=== PATIENT | female | born 1980 | race Caucasian/White ===

== ENCOUNTER 2018-11-14 02:45 | Emergency (ER) | payer BC ==
[2018-11-14] MEDS ORDERED: LORazepam 2 MG/ML VIAL ONE (03:42)
[2018-11-14] MEDS ORDERED: CARBAMAZEPINE 200 MG TAB ONE (03:43)
[2018-11-14] MEDS ORDERED: NA CHLORIDE 0.9% 1,000 ML ONE (03:43)
[2018-11-14 03:52] LABS: Protime INR 1.01
[2018-11-14 03:55] LABS: Absolute Lymphocytes (CBC) 1.1 K/uL (0.7-4.9); Absolute Monocytes 0.3 K/uL (0.1-1.3); Absolute Neutrophil 5.3 K/uL (1.8-8.0); Basophils % 0.7 % (0-1.3); Eosinophils % 0.8 % (0-4.4); Hematocrit 38.8 % (36.0-45.0); Lymphocytes % 15.6 % (15.3-44.8); MPV 8.6 fL (7.6-11.3); Monocytes % 4.9 % (3.3-12.3); RBC Red Blood Cell Count 4.13 M/uL (3.86-4.86)
[2018-11-14 04:01] LABS: Barbiturates NEGATIVE (NEGATIVE); Benzodiazepines NEGATIVE (NEGATIVE); Cocaine NEGATIVE (NEGATIVE); METHAMPHETAM NEGATIVE (NEGATIVE); Methadone NEGATIVE (NEGATIVE); Opiates NEGATIVE (NEGATIVE); Phencyclidine NEGATIVE (NEGATIVE); THC Cannibis NEGATIVE (NEGATIVE)
[2018-11-14 04:25] LABS: ALT/SGPT 19 U/L (12-78); Albumin 4.1 g/dL (3.4-5.0); Alkaline Phosphatase 63 U/L (45-117); BUN Blood Urea Nitrogen 8 mg/dL (7-18); Bicarbonate 26 mmol/L (21-32); Bilirubin Direct < 0.1 mg/dL (0-0.2); Bilirubin Total 0.3 mg/dL (0.2-1.0); Glucose Level 120 mg/dL (74-106); Lipase 121 U/L (73-393); Magnesium 2.1 mg/dL (1.8-2.4); NT PRO-BNP 65 pg/mL (<125); Protein, Total 7.3 g/dL (6.4-8.2); Sodium Level 138 mmol/L (136-145); Troponin I < 0.02 ng/mL (0.0-0.045)
[2018-11-14 04:26] LABS: AST/SGOT < 3 U/L (15-37)
[2018-11-14] MEDS ORDERED: CEFTRIAXONE/SWI 1gm 1 GM/10 ML SYR ONE (04:48)
--- NOTE | 2018-11-14 04:48 | EDPHYS ---
Physician Documentation [facility] Name: Valery Mueller Age: 38 yrs Sex: Female : 1980 Arrival Date: 11/14/2018 Time: 02:46 Bed 4 Private MD: ED Physician Xavier Irving HPI: 11/14 03:35 This 38 yrs old Female presents to ER via EMS with complaints of seizure and jaxon nausea. 03:35 The patient complains of pain to the forehead, left side of forehead, left temporal jaxon area, right temporal area and right side of forehead. The patient describes the headache as aching. Onset: The symptoms/episode began/occurred yesterday. Associated signs and symptoms: Pertinent positives: nausea. Severity of symptoms: At its worst the pain was mild. Headache History: The patient has had previous headaches and this one is similar to previous episodes. The patient has experienced similar episodes in the past, multiple times. 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 - Social history:: Smoking status: Patient/guardian denies using tobacco, Patient/guardian denies using alcohol, street drugs. - Ebola Screening: : Patient negative for fever greater than or equal to 101.5 degrees Fahrenheit, and additional compatible Ebola Virus Disease symptoms Patient denies exposure to infectious person Patient denies travel to an Ebola-affected area in the 21 days before illness onset. - Family history:: not pertinent, pertinent for. ROS: 03:35 Constitutional: Negative for fever, chills, and weight loss, Eyes: Negative for injury, jaxon pain, redness, and discharge, ENT: Negative for injury, pain, and discharge, Neck: Negative for injury, pain, and swelling, Cardiovascular: Negative for chest pain, palpitations, and edema, Respiratory: Negative for shortness of breath, cough, wheezing, and pleuritic chest pain, Abdomen/GI: Negative for abdominal pain, nausea, vomiting, diarrhea, and constipation, Back: Negative for injury and pain, : Negative for injury, bleeding, discharge, and swelling, MS/Extremity: Negative for injury and deformity, Neuro: Negative for headache, weakness, numbness, tingling, and seizure, Psych: Negative for depression, anxiety, suicide ideation, homicidal ideation, and hallucinations, Allergy/Immunology: Negative for hives, rash, and allergies, Endocrine: Negative for neck swelling, polydipsia, polyuria, polyphagia, and marked weight changes, Hematologic/Lymphatic: Negative for swollen nodes, abnormal bleeding, and unusual bruising. 03:35 Neuro: Positive for seizure activity, weakness. Exam: 03:35 Constitutional: This is a well developed, well nourished patient who is awake, alert, jaxon and in no acute distress. Head/Face: Normocephalic, atraumatic. Eyes: Pupils equal round and reactive to light, extra-ocular motions intact. Lids and lashes normal. Conjunctiva and sclera are non-icteric and not injected. Cornea within normal limits. Periorbital areas with no swelling, redness, or edema. ENT: Nares patent. No nasal discharge, no septal abnormalities noted. Tympanic membranes are normal and external auditory canals are clear. Oropharynx with no redness, swelling, or masses, exudates, or evidence of obstruction, uvula midline. Mucous membranes moist. Neck: Trachea midline, no thyromegaly or masses palpated, and no cervical lymphadenopathy. Supple, full range of motion without nuchal rigidity, or vertebral point tenderness. No Meningismus. Chest/axilla: Normal chest wall appearance and motion. Nontender with no deformity. No lesions are appreciated. Cardiovascular: Regular rate and rhythm with a normal S1 and S2. No gallops, murmurs, or rubs. Normal PMI, no JVD. No pulse deficits. Respiratory: Lungs have equal breath sounds bilaterally, clear to auscultation and percussion. No rales, rhonchi or wheezes noted. No increased work of breathing, no retractions or nasal flaring. Abdomen/GI: Soft, non-tender, with normal bowel sounds. No distension or tympany. No guarding or rebound. No evidence of tenderness throughout. Back: No spinal tenderness. No costovertebral tenderness. Full range of motion. Skin: Warm, dry with normal turgor. Normal color with no rashes, no lesions, and no evidence of cellulitis. MS/ Extremity: Pulses equal, no cyanosis. Neurovascular intact. Full, normal range of motion. Psych: Awake, alert, with orientation to person, place and time. Behavior, mood, and affect are within normal limits. 03:35 Neuro: Orientation: is normal, appropriate for stated age, no acute changes, Mentation: is normal, appropriate for stated age, no acute changes, Memory: is normal, appropriate for stated age, no acute changes, Cranial nerves: grossly normal, is grossly normal based on the patient's age, no acute changes. Vital Signs: 02:42 BP 131 / 84; Pulse 66; Resp 18; Temp 98.3(O); Pulse Ox 100% on R/A; Weight 72.57 kg fc (R); Height 5 ft. 2 in. (157.48 cm) (R); Pain 6/10; 03:55 BP 124 / 79; Pulse 51; Resp 16; Pulse Ox 100% on R/A; Pain 6/10; ed1 04:20 BP 125 / 73; Pulse 58; Resp 15; Pulse Ox 100% ; ea 02:42 Body Mass Index 29.26 (72.57 kg, 157.48 cm) MDM: 02:54 Patient medically screened. [facility] 03:38 Data reviewed: vital signs, nurses notes, lab test result(s), EKG, radiologic studies. [facility] 11/14 03:27 Order name: Urine Dipstick--Ancillary (enter results) [facility] 11/14 03:27 Order name: Urine --Ancillary (enter results) [facility] 11/14 03:35 Order name: Urine Drug Screen; Complete Time: 04:13 [facility] 11/14 03:35 Order name: Urine Culture [facility] 11/14 02:56 Order name: XRAY Chest (1 view) [facility] 11/14 03:14 Order name: Chest Single View [facility] 11/14 03:40 Order name: Basic Metabolic Panel; Complete Time: 04:46 [facility] 11/14 03:40 Order name: Liver (Hepatic) Function; Complete Time: 04:46 [facility] 11/14 03:40 Order name: Troponin I; Complete Time: 04:46 [facility] 11/14 03:40 Order name: NT PRO-BNP; Complete Time: 04:46 [facility] 11/14 03:40 Order name: Magnesium; Complete Time: 04:46 [facility] 11/14 03:40 Order name: Lipase; Complete Time: 04:46 [facility] 11/14 03:41 Order name: CBC with Automated Diff; Complete Time: 03:58 [facility] 11/14 03:41 Order name: Protime (+INR); Complete Time: 03:58 [facility] 11/14 03:59 Order name: Head Brain Wo Cont [facility] 11/14 04:01 Order name: Carbamazepine (Tegretol) Level; Complete Time: 04:46 [facility] 11/14 02:56 Order name: EKG; Complete Time: 07:16 [facility] 11/14 02:56 Order name: Cardiac monitoring; Complete Time: 03:23 [facility] 11/14 02:56 Order name: EKG - Nurse/Tech; Complete Time: 03:23 [facility] 11/14 02:56 Order name: IV Saline Lock; Complete Time: 03:23 [facility] 11/14 02:56 Order name: Labs collected and sent; Complete Time: 03:23 [facility] 11/14 02:56 Order name: O2 Per Protocol; Complete Time: 03:23 [facility] 11/14 02:56 Order name: O2 Sat Monitoring; Complete Time: 03:23 [facility] 11/14 02:56 Order name: Urine Dipstick-Ancillary (obtain specimen); Complete Time: 03:23 [facility] 11/14 02:56 Order name: Urine Test (obtain specimen); Complete Time: 03:22 [facility] 11/14 02:56 Order name: Seizure Precautions; Complete Time: 02:57 [facility] Administered Medications: 03:45 Drug: TEGretol 400 mg Route: PO; ed1 05:03 Follow up: Response: No adverse reaction ed1 03:46 Drug: NS 0.9% 1000 ml Route: IV; Rate: 125 ml/hr; Site: right antecubital; ed1 05:02 Follow up: IV Status: Order to discontinue infusion; IV Intake: 125ml ed1 03:46 Drug: Ativan 1 mg Route: IVP; Site: right antecubital; ed1 05:03 Follow up: Response: No adverse reaction ed1 04:49 Drug: Rocephin - (cefTRIAXone) 1 grams Route: IVPB; Infused Over: 30 mins; Site: right ed1 antecubital; 05:02 Follow up: Response: No adverse reaction; IV Status: Completed infusion ed1 Disposition: 11/14/18 04:47 Discharged to Home. Impression: Epilepsy and recurrent seizures, Cystitis. - Condition is Fair. - Discharge Instructions: Dysuria, Seizure, Adult, Seizure, Adult, [id number]. - Prescriptions for Tegretol 200 mg Oral Tablet - take 1 tablet by ORAL route every 12 hours; 40 tablet. Cipro 500 mg Oral Tablet - take 1 tablet by ORAL route every 12 hours for 7 days; 14 tablet. - Medication Reconciliation Form, Thank You Letter, Antibiotic Education, Prescription Opioid Use form. - Follow up: Private Physician; When: 2 - 3 days; Reason: Recheck today's complaints, Continuance of care, Re-evaluation by your physician. Follow up: Mohinder Waller; When: 2 - 3 days; Reason: Recheck today's complaints, Continuance of care, Re-evaluation by your physician. - Problem is new. - Symptoms have improved. Signatures: Dispatcher [employer] EDMS Xavier Irving MD MD cha Chretien, Felicia, RN RN Poppy Barry RN RN ed1 Corrections: (The following items were deleted from the chart) 05:04 04:47 11/14/2018 04:47 Discharged to Home. Impression: Epilepsy and recurrent seizures; ed1 Cystitis. Condition is Fair. Discharge Instructions: Dysuria, Seizure, Adult, Seizure, Adult, [id number]. Prescriptions for Tegretol 200 mg Oral Tablet - take 1 tablet by ORAL route every 12 hours; 40 tablet, Cipro 500 mg Oral Tablet - take 1 tablet by ORAL route every 12 hours for 7 days; 14 tablet. and Forms are Medication Reconciliation Form, Thank You Letter, Antibiotic Education, Prescription Opioid Use. Follow up: Private Physician; When: 2 - 3 days; Reason: Recheck today's complaints, Continuance of care, Re-evaluation by your physician. Follow up: Mohinder Waller; When: 2 - 3 days; Reason: Recheck today's complaints, Continuance of care, Re-evaluation by your physician. Problem is new. Symptoms have improved. jaxon
--- NOTE | 2018-11-14 04:48 | ER ---
Nurse's Notes [facility] Name: Valery Mueller Age: 38 yrs Sex: Female : 1980 Arrival Date: 11/14/2018 Time: 02:46 Bed 4 Private MD: Diagnosis: Epilepsy and recurrent seizures;Cystitis Presentation: 11/14 02:42 Presenting complaint: EMS states: that pt had seizure earlier today while she was in her car. She was then arrested and taken to snf. There she felt as if her head was swelling, she was nauseated and felt like another seizure was going to happen so they called EMS. Has not taken her Tegretol in 2 weeks because she is out. Transition of care: patient was not received from another setting of care. Onset of symptoms was November 13, 2018. Risk Assessment: Do you want to hurt yourself or someone else? Patient reports no desire to harm self or others. Initial Sepsis Screen: Does the patient meet any 2 criteria? No. Patient's initial sepsis screen is negative. Does the patient have a suspected source of infection? No. Patient's initial sepsis screen is negative. Care prior to arrival: Glucose check: 100. 02:42 Method Of Arrival: EMS: 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 - Social history:: Smoking status: Patient/guardian denies using tobacco, Patient/guardian denies using alcohol, street drugs. - Ebola Screening: : Patient negative for fever greater than or equal to 101.5 degrees Fahrenheit, and additional compatible Ebola Virus Disease symptoms Patient denies exposure to infectious person Patient denies travel to an Ebola-affected area in the 21 days before illness onset. - Family history:: not pertinent, pertinent for. Screenin:42 Abuse screen: Denies threats or abuse. Nutritional screening: No deficits noted. fc Tuberculosis screening: No symptoms or risk factors identified. Fall Risk None identified. Assessment: 03:24 General: Appears in no apparent distress. Behavior is calm, cooperative. Pain: ed1 Complains of pain in head Pain does not radiate. Pain currently is 6 out of 10 on a pain scale. Quality of pain is described as aching, Pain began 1 day ago. Is continuous. Neuro: Level of Consciousness is awake, alert, obeys commands, Oriented to person, place, time, situation, Hose Inspector are equal bilaterally Moves all extremities. Full function Gait is steady, Speech is normal, Facial symmetry appears normal, Pupils are PERRLA, Intact Reports Pt reports seizure activity yesterday during the day. Cardiovascular: Denies chest pain, Heart tones S1 S2 present. Respiratory: Airway is patent Respiratory effort is even, unlabored, Respiratory pattern is regular, symmetrical, Breath sounds are clear bilaterally. GI: Abdomen is non-distended, Bowel sounds present X 4 quads. Abd is soft and non tender X 4 quads. Reports nausea, Patient currently denies diarrhea, vomiting. : No signs and/or symptoms were reported regarding the genitourinary system. EENT: No signs and/or symptoms were reported regarding the EENT system. Derm: Skin is intact, is healthy with good turgor, Skin is dry, Skin is normal, Skin temperature is warm. Musculoskeletal: Circulation, motion, and sensation intact. Range of motion: intact in all extremities. 03:55 Reassessment: Patient appears in no apparent distress at this time. No changes from ed1 previously documented assessment. Patient and/or family updated on plan of care and expected duration. Pain level reassessed. Patient is alert, oriented x 3, equal unlabored respirations, skin warm/dry/pink. No seizure activity noted Patient states symptoms have not improved. 05:00 Reassessment: Patient appears in no apparent distress at this time. Patient and/or ed1 family updated on plan of care and expected duration. Pain level reassessed. Patient is alert, oriented x 3, equal unlabored respirations, skin warm/dry/pink. No seizure activity noted Patient denies pain at this time. Patient states feeling better. Vital Signs: 02:42 BP 131 / 84; Pulse 66; Resp 18; Temp 98.3(O); Pulse Ox 100% on R/A; Weight 72.57 kg (R); Height 5 ft. 2 in. (157.48 cm) (R); Pain 6/10; 03:55 BP 124 / 79; Pulse 51; Resp 16; Pulse Ox 100% on R/A; Pain 6/10; ed1 04:20 BP 125 / 73; Pulse 58; Resp 15; Pulse Ox 100% ; ea 02:42 Body Mass Index 29.26 (72.57 kg, 157.48 cm) ED Course: 02:42 Arm band placed on Patient placed in an exam room, on a stretcher. 02:42 Patient has correct armband on for positive identification. Bed in low position. Call light in reach. Side rails up X2. Seizure precautions initiated. [place] police aide at bedside. residential monitor on. Pulse ox on. NIBP on. 02:42 No provider procedures requiring assistance completed. fc 02:46 Patient arrived in ED. al2 02:51 Triage completed. fc 02:54 Xavier Irving MD is Attending Physician. jaxon 03:12 Poppy Foster, RN is Primary Nurse. ed1 03:30 Chest Single View In Process Unspecified. EDMS 03:39 Inserted saline lock: 20 gauge in right antecubital area, using aseptic technique. lt1 03:39 Initial lab(s) drawn, by mt, sent to lab. lt1 04:17 CT completed. Patient tolerated procedure well. Patient moved to CT via stretcher. Patient moved back from CT. 04:43 Head Brain Wo Cont In Process Unspecified. EDMS 04:47 Mohinder Waller MD is Referral Physician. jaxon 05:00 IV discontinued, intact, bleeding controlled, No redness/swelling at site. Pressure ed1 dressing applied. Administered Medications: 03:45 Drug: TEGretol 400 mg Route: PO; ed1 05:03 Follow up: Response: No adverse reaction ed1 03:46 Drug: NS 0.9% 1000 ml Route: IV; Rate: 125 ml/hr; Site: right antecubital; ed1 05:02 Follow up: IV Status: Order to discontinue infusion; IV Intake: 125ml ed1 03:46 Drug: Ativan 1 mg Route: IVP; Site: right antecubital; ed1 05:03 Follow up: Response: No adverse reaction ed1 04:49 Drug: Rocephin - (cefTRIAXone) 1 grams Route: IVPB; Infused Over: 30 mins; Site: right ed1 antecubital; 05:02 Follow up: Response: No adverse reaction; IV Status: Completed infusion ed1 Intake: 05:02 IV: 125ml; Total: 125ml. ed1 Outcome: 04:47 Discharge ordered by MD. coates 05:00 Discharged to Law Enforcement ed1 05:00 Condition: good 05:00 Discharge instructions given to patient, Instructed on discharge instructions, follow up and referral plans. medication usage, Demonstrated understanding of instructions, follow-up care, medications, Prescriptions given X 2. 05:04 Patient left the ED. ed1 Addendum: 11/17/2018 11:09 Addendum: Culture Results: Positive urine culture. Bacteria is resistant to, has a a5 intermediate sensitivity, or is not tested against prescribed antibiotics. Report given to KARMA for further evaluation and then to bottling equipment sales representative for follow up with patient. Phone call Attempt #1 [phone]. Spoke to patient, pt states feeling better, pt states "I am taking my seizure medicine and I am on antibiotics". Pt denies any urinary symptoms at this time, pt instructed to follow up with PCP per Charbel Flores NP. Signatures: Dispatcher [employer] Xavier Marin MD MD cha Hagler, Ervin eh Chretien, Felicia RN [place] Kelly Felix RN RN aa5 Poppy Foster RN RN ed1 Shelly Grayson RN RN ea Love, Angelica al2 Tran, Leah 1
--- NOTE | 2018-11-14 06:54 | RAD REPORT ---
EXAM DESCRIPTION: RAD - Chest Single View - 11/14/2018 3:30 am CLINICAL HISTORY: Cough COMPARISON: None. TECHNIQUE: AP portable chest image was obtained 0328 hours . FINDINGS: Lungs are clear. Heart and vasculature are normal. No measurable pleural effusion and no p neumothorax. No acute bony abnormality seen. No acute aortic findings suspected. IMPRESSION: No acute cardiopulmonary process.
[2018-11-14 07:24] LABS: Urine Blood NEGATIVE (NEG); Urine Glucose NEGATIVE (NEG); Urine Protein NEGATIVE (NEG); Urine Specific Gravity 1.015 (1.005-1.030); Urine pH 8.5 (5.0-7.0)
--- NOTE | 2018-11-14 08:15 | EKG ---
Test Date: 2018-11-14 Test Time: 03:32:36 Ross Carrier Driver: NICHOT MEASUREMENT RESULTS: Intervals: Rate: 54 NJ: 138 QRSD: 88 QT: 412 QTc: 390 Basom: P: 28 NJ: 138 QRS: 24 T: 21 INTERPRETIVE STATEMENTS: Sinus bradycardia Otherwise normal ECG No previous ECG available for comparison Electronically Signed On 11-14-18 08:08:14 FILM DRYING MACHINE OPERATOR by Pa Meredith
--- NOTE | 2018-11-14 08:30 | RAD REPORT ---
EXAM DESCRIPTION: CT - Head Brain Wo Cont - 11/14/2018 6:38 am CLINICAL HISTORY: Seizure A preliminary report was provided at the time of the study and reviewed prior to final report. COMPARISON: CT head January 2013 TECHNIQUE: Axial 5 mm thick images of the head were obtained without IV contrast. All CT scans are performed using dose optimization technique as appropriate and may include automated exposure control or mA/KV adjustment according to patient size. FINDINGS: No intracranial hemorrhage, mass, edema or shift of mid-line structures. No acute infarcti on changes seen. No abnormal extra-axial fluid collections. Ventricles are normal. Mastoid air cells and visualized portions of the paranasal sinuses are clear. No acute bony findings. No significant change from comparison. IMPRESSION: Negative non-contrast CT head examination.
== END 2018-11-14 05:04 | disposition home or self-care (01) ==
LOC: ER 02:45
DX: G40.909 Epilepsy, unspecified, not intractable, without status epilepticus (principal); N30.90 Cystitis, unspecified without hematuria; R51 Headache; E03.9 Hypothyroidism, unspecified; F32.9 Major depressive disorder, single episode, unspecified; F41.9 Anxiety disorder, unspecified
CPT/HCPCS: 36415; 70450; 71045; 80048; 80076; 80156; 80307; 81003; 81025; 83690; 83735; 83880; 84484; 85025; 85610; 87077; 87086; 87088; 87186; 93005; J0696; J7030

== ENCOUNTER 2021-04-14 11:16 | Day surgery (SDC) | payer OTHER ==
[2021-04-11 12:14] LABS: Urine Appearance CLOUDY (Clear); Urine Bilirubin NEGATIVE (Negative); Urine Blood 2+ (Negative); Urine Color YELLOW (Yellow); Urine Glucose NEGATIVE (Negative); Urine Protein NEGATIVE (Negative); Urine Specific Gravity 1.015 (1.005-1.030); Urine Urobilinogen 0.2 mg/dL (0.2-1.0); Urine pH 5.5 (5.0-7.0)
[2021-04-11 12:14] LABS: Absolute Lymphocytes (CBC) 1.1 K/uL (0.7-4.9); Basophils % 0.8 % (0-1.3); Hematocrit 37.5 % (36.0-45.0); Lymphocytes % 19.9 % (15.3-44.8); MPV 8.5 fL (7.6-11.3); RBC Red Blood Cell Count 4.13 M/uL (3.86-4.86)
[2021-04-11 12:21] LABS: Urine Microscopic Reflex ORDER UMIC
[2021-04-11 12:30] LABS: Urine Bacteria <20 /HPF (<20); Urine RBC NONE SEEN /HPF (NONE SEEN)
[2021-04-14] MEDS ORDERED: dexAMETHasone 10 MG/ML VIAL ONE (11:21)
[2021-04-14] MEDS ORDERED: FENTANYL CITR 250 MCG/5 ML ONE (11:21)
[2021-04-14] MEDS ORDERED: LIDOCAINE 1% MPF 5 ML VIAL ONE (11:21)
[2021-04-14] MEDS ORDERED: propofoL 200 MG/20 ML VIAL IV ONE (11:21)
[2021-04-14] MEDS ORDERED: MIDAZOLAM HCL 2 MG/2 ML INJ ONE (11:21)
[2021-04-14] MEDS ORDERED: ROCURONIUM 50 MG/5 ML VIAL IV ONE (11:22)
[2021-04-14] MEDS ORDERED: ONDANSETRON 4 MG/2 ML VIAL ONE (11:22)
[2021-04-14] MEDS ORDERED: NA CHLORIDE 0.9% 1,000 ML ONE (11:23)
[2021-04-14] MEDS ORDERED: NA CHLORIDE 0.9% 0 ML IV ONE (11:23)
[2021-04-14] MEDS ORDERED: CEFAZOLIN/SWI 1gm 1 GM/10 ML SYR ONE (11:24)
[2021-04-14 11:44] LABS: Specific Gravity 1.025 (1.005-1.030)
[2021-04-14] MEDS ORDERED: CEFAZOLIN/SWI 2gm 2 GM/20 ML SYR ONE (11:51)
[2021-04-14] MEDS ORDERED: ACETAMINOPHEN 500 MG TAB PO ONE (12:03)
[2021-04-14] MEDS ORDERED: CELECOXIB 100 MG CAPSULE PO ONE (12:03)
[2021-04-14] MEDS ORDERED: NA CHLORIDE 0.9% 100 ML IV ONE (12:12)
[2021-04-14] MEDS ORDERED: CELECOXIB 100 MG CAPSULE ONE (12:22)
[2021-04-14] MEDS ORDERED: ACETAMINOPHEN 500 MG TAB ONE (12:23)
[2021-04-14] MEDS: VASOPRESSIN 20 UNIT/ML VIAL ONE ×3 (12:50→13:16)
[2021-04-14] MEDS ORDERED: GLYCOPYRROLATE 0.2 MG/ML SYR ONE ×2 (13:16→14:46)
[2021-04-14] MEDS ORDERED: Ringers Lactate 1,000 ML IV ONE (14:24)
[2021-04-14] MEDS ORDERED: FENTANYL CITR 100 MCG/2 ML ONE (14:32)
[2021-04-14] MEDS ORDERED: HYDROCODONE/APAP 5/325 MG TAB PO PRN (14:49)
[2021-04-14] MEDS ORDERED: IBUPROFEN 200 MG TAB PO PRN (14:49)
[2021-04-14] MEDS ORDERED: PROMETHAZINE 25 MG TABLET PO PRN (14:49)
[2021-04-14] MEDS ORDERED: MEPERIDINE HCL 25 MG/ML SYR IM PRN (14:49)
[2021-04-14] MEDS ORDERED: NEOSTIGMINE 1 MG/ML -5 ML ONE (14:52)
[2021-04-14] MEDS: FENTANYL CITR 100 MCG/2 ML ONE ×2 (14:54→15:04)
--- NOTE | 2021-04-14 14:58 | P.BOP ---
Preoperative diagnosis: NKECHI, rectocele, perineal body defect Postoperative diagnosis: same and posterior enterocele Primary procedure: MUS T-O; rectocele/post enterocele/perineal body repairs, cystoscopy Study Coordinator: Celeste Muhammad Estimated blood loss: 50 Specimen: none Findings: -1/-3/-7/5/thin/8/0/0/-8 Anesthesia: General Complications: None Drain(s): Urinary catheter Implants: TVT-O Transferred to: Recovery Room Condition: Good
[2021-04-14] MEDS ORDERED: LEVONORGESTREL IUD IY SCH (15:00)
[2021-04-14] MEDS ORDERED: SCOPOLAMINE HYDROBROMIDE PATCH TD ONE (15:13)
[2021-04-14 15:53] VITALS: BP 118/67; TEMP 97.9; O2SAT 98
[2021-04-14] MEDS ORDERED: HYDROCODONE/APAP 5/325 MG TAB ONE (16:32)
--- NOTE | 2021-04-14 22:50 | OP ---
Date of Procedure: 04/14/2021 Surgeon: Kathy Aldridge MD Taper Machine: Celeste Muhammad. Preoperative Diagnoses: Stress urinary incontinence and rectocele, perineal body defect. Postoperative Diagnoses: Stress urinary incontinence and rectocele, perineal body defect, posterior enterocele. The rectocele was stage II. Procedures Performed: 1.Mid-urethral sling, transobturator approach (TVTO). 2.Rectocele repair with perineal body repair and posterior enterocele repair and cystoscopy. Anesthesia: General endotracheal. Ebl: 50. Specimens: No specimens. Complications: No complications. Drains: Gallardo catheter. Findings: Pop Q -1, -3, -7, 5, 10, 8, 0, 0, -8. Implants: TVTO. Condition: Good. Indication: The patient is a 41-year-old presenting with stress urinary incontinence. On pelvic exa mination, she was noted to have urethral hypermobility and positive cough stress test. Also had sign ificant perineal body defect as well as a distal posterior wall defect. She was notified of this and at the subsequent appointment, she did note that she has vaginal pressure in the perineal area and b ulge symptoms. After discussing all the alternatives of treatment of stress urinary incontinence including weight lo ss, Kegel exercises with pelvic floor muscle therapy, and mid urethral sling, urethral bulking, risks and benefits and all the options reviewed. The patient wanted to proceed with a mid urethral sling. Kegel's were reviewed in the office at the bedside with biofeedback. She can continue to do these on a long-term basis after the postop recovery is done. All the complications of the sling including groin pain besides the bleeding, infection and injury to the urethra, bladder were all reviewed, and she was consented. Urinary retention, sling revision wi th complications and the patient understood this. For rectocele repair, I proceeded with consenting her posterior perineorrhaphy if indicated. Besides the above complications, very rare incidence of fistula was also reviewed and she was consented. An cef 2 g was given preop. Procedure In Detail: We consented in the preoperative area and took her back to the OR, placed in a supine fashion on the operating table. General anesthesia was given. She was placed in a dorsal lit hotomy position. Lower abdomen, vulva, vagina, and perineum were prepped and draped in a sterile fas hion. Gallardo was placed to drain the bladder and clamped with a Monalisa clamp and retracted superiorly. The pop Q was done. Full pelvic exam was noted. Then, the sling was the first procedure to do. M id urethral area was picked up with 2 Allis clamps. 1 cm incision was made after dilute vasopressin 20 units and 40 cc of normal saline was used, 20 cc was injected in the center as well as on the side s. A full thickness dissection was performed at a 45-degree angle to the horizontal and vertical bairon fiorella going to the obturator space and hugging the inferior pubic ramus. Once the obturator membrane w as perforated, the Clayton were opened up and the track was widened and they were pulled out. Similar d issection was performed on left side, much easier dissection here. No perforation in the fornix on e ither sides. Then the TVTO kit was opened. Wing guide was placed through the prior tunnel all the w ay into the obturator space. Then, the spike was passed past the wing guide. The wing guide was rem tanesha and spike hugging the inferior pubic ramus was rotated medially exited at a point above the leve l of the urethral meatus 2 cm lateral to the groin fold on the medial thigh avoiding the adductor ten don. Opposite pass was taken in a similar fashion, much smoother past. No problems. Both plastic dilator s were pulled out and cut out. The sheath and the mesh were clamped with Kellys. In the suburethral area, Metzenbaum scissors were placed to tension the mesh appropriately. Once this was done and the sheaths were pulled out, then the mesh was not with the urethra, not too loose, but not too tight ei ther. Irrigation with antibiotic solution was done and the vaginal epithelial closure was done with the help of a 3-0 Vicryl in a continuous running horizontal mattress fashion. Gallardo was removed. Cystoscopy was performed with a 30-degree lens and normal saline. Both ureteric orifices were patent. The entire bladder examination was normal including the trigone area above the trigone dome and both lateral vega, no evidence of any tumors, diverticula, or stones. Urethra was observed as the scope was pulled out and was unremarkable. Gallardo was replaced. Bladder was drained . This was clamped and retracted superiorly. Examination of the posterior wall, the remnants of the hymen were picked up on each side. There was a distinct perineal body defect and then the posterior defect appeared to be evident as well. So, ab out 4 cm above from the hymenal ring, the midline posterior wall was held with an Allis clamp. This area was injected with dilute vasopressin. At least 30 cc was injected in the midline all the way to the apex and the posterior wall as well as in the perineal body area. Once this was done, a leticia -shaped incision was made in the distal posterior wall on the skin and vaginal epithelium was skinned off from the underlying connective tissue with the help of a scalpel. Hemostasis with the help of e lectrocautery. The flaps were raised. Rest of the dissection of the proximal distal wall and the connective tissue and rectovaginal septum were performed. There was an avulsion defect from the right lateral wall. T his is where the posterior enterocele was bulging through. Attachment to the apex was significantly unremarkable, however given the fact that there was an avulsion defect here on the right lateral aspe ct in the distal part of the rectovaginal septum, it was also presumed to be a detachment from the ap ex on the right lateral aspect. So 2-0 PDS was taken after the entire connective tissue was dissecte d and isolated and exposed well. The inferior part of the incision was also dissected. Vaginal epit helium and subepithelium were from the connective tissue and the perineal body was all diss ected open by extending the incision along the vestibule onto the peritoneum. The transverse parts o f the bulbocavernosus or the deep transverse perineum were identified. There was mostly scar-like ti ssue. 2-0 PDS was first started on the posterior wall closing the defect from the right lateral aspe ct. Once this was sutured down, then superiorly the 2-0 PDS suture was taken, and from [id number], the entire connective tissue wall was plicated into the center and the stitch tied at the distal end . The perineal body was reconstructed with placing a finger in the rectum and placing three 2-0 Vicr yl sutures to reconstruct the perineal body from side to side. Once this was done, then another laye r of interrupted 2-0 Vicryl sutures x2 were placed to rebuild the perineum completely. Once this was done, one of the 2 sutures was placed in a such a fashion that it reattached the distal rectovaginal septum back to the perineal body. Once this was done, there was excellent support and on the rectov aginal exam no defect was noted. The posterior enterocele was closed along with a 2-0 PDS on the top as dictated prior. Then, vaginal epithelium was mobilized to raise flap and advancement flap that was brought all the wa y down to the perineum and vaginal epithelium was trimmed on each side at the distal perineal body ex tending into the posterior wall laterally. Very slight level of trimming was done, maybe less than 0 .5 cm just to take the dog ears out, and this was closed with the help in a transverse fashion and wi th a 2-0 running PDS. of the three margins in the center distal aspect of the posterior w all, here 3-0 Vicryl was taken to start closure and it was brought down in a subcutaneous and then peterson bcuticular fashion and the suture was tied. superficial part of the perineal body as well as the vaginal epithelium and the perineal skin. There was separate simple suture placed on the per ineal skin as there was a laceration after the suture was done. Slight puckering was present, but no significant scar tissue was anticipated. The rectal exam was performed. No evidence of any trauma to the rectum. All the sling mesh was trim med, very flushed with the skin. All the perineal areas as well as the sling areas were injected wit h 0.5% bupivacaine 20 cc in total. Catheter was left in place. Small vaginal pack was placed in the vagina. The patient will be discharged home with a Gallardo catheter. If there was optimal pain contr ol by tomorrow afternoon, she can remove her catheter and come for a voiding trial in the office. Ot herwise, she has been counseled to keep the Gallardo till Sunday morning so she can come in for a voidin g trial after removing it at 6 o'clock to the office. She has narcotic prescriptions sent to her pharma cy. DEREK/HAWA Voice ID: [id number] Report ID: [id number]
[2021-04-15] MEDS ORDERED: HOME MED 1 EA UNK (Fluoxetine Hcl [Prozac] 40 MG Capsule) PO SCH (09:00)
[2021-04-15] MEDS ORDERED: hydroCHLOROthiazide 12.5 MG CAP PO SCH (09:00)
[2021-04-15] MEDS ORDERED: HOME MED 1 EA UNK (Levothyroxine Sodium [Synthroid] 150 MCG Tablet) PO SCH (09:00)
[2021-04-15] MEDS ORDERED: HOME MED 1 EA UNK (Fiber [Fiber Diet] 1 EACH Tablet) PO SCH (09:00)
[2021-04-15] MEDS ORDERED: HOME MED 1 EA UNK (Cider Vinegar [Apple Cider Vinegar] 300 MG Tablet) PO SCH (09:00)
[2021-04-15] MEDS ORDERED: PANTOPRAZOLE 40MG TABLET PO SCH (09:00)
[2021-04-15] MEDS ORDERED: BUPROPION HCL XL 150 MG TAB PO SCH (09:00)
== END 2021-04-14 16:56 | disposition home or self-care (01) ==
LOC: OR 11:16
PROVIDERS: ATTEND Obstetrics & Gynecology
PROC: 0UUF0JZ Supplement Cul-de-sac with Synthetic Substitute, Open Approach (ICD-10-PCS; 2021-04-14)
PROC: 0JQC0ZZ Repair Pelvic Region Subcutaneous Tissue and Fascia, Open Approach (ICD-10-PCS; 2021-04-14)
PROC: 0HQ9XZZ Repair Perineum Skin, External Approach (ICD-10-PCS; 2021-04-14)
PROC: 0TSD0ZZ Reposition Urethra, Open Approach (ICD-10-PCS; principal; 2021-04-14 15:00)
DX: N39.3 Stress incontinence (female) (male) (principal); N81.6 Rectocele; E03.9 Hypothyroidism, unspecified; F41.8 Other specified anxiety disorders; N81.5 Vaginal enterocele; Z20.822 Contact with and (suspected) exposure to COVID-19
CPT/HCPCS: 57288; 57265; 85025; 36415; 86900; 86850; 81025; 86901; U0002; J2704; J2250; J3010 ×3; J1100; J2710; J0690 ×2; J7120; J7030; J2405; 81003; 81015